=== PATIENT | male | born 1985 | race Two or more races ===

== ENCOUNTER 2018-03-18 16:39 | Emergency (ER) | payer MEDICAID ==
[~2018-03-18] VITALS: Ht 170.2 cm; Wt 93.9 kg
[2018-03-18 18:22] VITALS: BP 117/85
== END 2018-03-18 19:21 | disposition home or self-care (01) ==
LOC: ER 16:45
DX: E11.649 Type 2 diabetes mellitus with hypoglycemia without coma (principal); Z79.4 Long term (current) use of insulin; Z76.0 Encounter for issue of repeat prescription